=== PATIENT | female | born 1940 ===

== ENCOUNTER 2018-11-06 17:05 | Emergency (ER) | payer MEDICARE, OTHER ==
[2018-11-06 17:35] VITALS: O2SAT 99
--- NOTE | 2018-11-06 18:06 | C.PDOC ---
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 Patient states that she takes Meclizine 1 to 2 times daily with transient improvement. She reports that her symptoms are worse when sitting up from a laying position but improve with standing up. Patient denies any headaches, nausea, vomiting, or recent viral syndrome. Time Seen by Provider: 11/06/18 17:41 Chief Complaint (Nursing): Dizziness/Lightheaded History Per: Patient History/Exam Limitations: no limitations Onset/Duration Of Symptoms: Days (3) Current Symptoms Are (Timing): Still Present Associated Symptoms Preceding Syncopal Episode: Other (better with standing worse with sitting up from a laying position ) Recent travel outside of the [place]: No Additional History Per: Patient Past Medical History Reviewed: Historical Data, Nursing Documentation, Vital Signs Vital Signs: Last Vital Signs Temp 98.3 F 11/06/18 17:33 Pulse 70 11/06/18 17:33 Resp 18 11/06/18 17:33 BP 152/69 H 11/06/18 17:33 Pulse Ox 99 11/06/18 17:33 - Medical History PMH: GERD, HTN, Hyperthyroidism, Migraine Surgical History: Tonsillectomy Family History: States: No Known Family Hx - Social History Hx Alcohol Use: No Hx Substance Use: No Review Of Systems Gastrointestinal: Negative for: Nausea, Vomiting Neurological: Positive for: Other (positional vertigo). Negative for: Headache Physical Exam - Physical Exam Appears: Non-toxic, No Acute Distress Skin: Normal Color, Warm, Dry Head: Atraumatic, Normacephalic Eye(s): bilateral: Normal Inspection, Other (no sticking nystagmus ) Ear(s): Bilateral: Normal Nose: Normal Oral Mucosa: Moist Throat: Normal Neck: Normal ROM, Supple Chest: Symmetrical, No Deformity Cardiovascular: Rhythm Regular Respiratory: Normal Breath Sounds Gastrointestinal/Abdominal: Soft Extremity: Normal ROM Neurological/Psych: Oriented x3, Normal Speech, Normal Cognition, Normal Cranial Nerves, Normal Motor, Normal Sensation, Normal Reflexes ED Course And Treatment O2 Sat by Pulse Oximetry: 99 (on RA) Pulse Ox Interpretation: Normal Medical Decision Making Medical Decision Making: Plan: Motrin Tab 600mg PO Antivert 50mg PO Disposition - Disposition - Scribe Statement The provider has reviewed the documentation as recorded by the Scribfermin Chowdhury All medical record entries made by the Scribe were at my direction and personally dictated by me. I have reviewed the chart and agree that the record accurately reflects my personal performance of the history, physical exam, medical decision making, and the department course for this patient. I have also personally directed, reviewed, and agree with the discharge instructions and disposition.
[2018-11-06 18:24] VITALS: RESP 16
--- NOTE | 2018-11-06 19:03 | C.PDOC ---
Time Seen by Provider: 11/06/18 17:41 Chief Complaint (Nursing): Dizziness/Lightheaded Past Medical History Vital Signs: Last Vital Signs Temp 98.3 F 11/06/18 17:33 Pulse 70 11/06/18 17:33 Resp 18 11/06/18 17:33 BP 152/69 H 11/06/18 17:33 Pulse Ox 99 11/06/18 17:33 - Medical History PMH: GERD, HTN, Hyperthyroidism, Migraine Surgical History: Tonsillectomy - Social History Hx Alcohol Use: No Hx Substance Use: No ED Course And Treatment O2 Sat by Pulse Oximetry: 99 Reevaluation Time: 19:03 Reassessment Condition: Improved (positional vertigo resolved) Medical Decision Making Medical Decision Making: BPV x >10 years Undertreated @ home. improved with ED tx home regimen augmented Disposition Doctor Will See Patient In The: Office Counseled Patient/Family Regarding: Studies Performed, Diagnosis - Disposition Disposition: HOME/ ROUTINE Disposition Time: 19:05 Condition: GOOD - Clinical Impression Clinical Impression: Vertigo
[2018-11-06 19:40] VITALS: BP 144/75; PULSE 84; TEMP 97.6
== END 2018-11-06 19:36 | disposition home or self-care (01) ==
LOC: C.ER 17:05
DX: R42 Dizziness and giddiness (principal)